=== PATIENT | male | born 1960 | race Caucasian/White ===

== ENCOUNTER 2020-07-22 17:18 | Outpatient (CLI) | payer MEDICARE, OTHER | END 2020-07-22 17:19 | disposition home or self-care (01) | LOC: CSHRAD 17:18 | PROVIDERS: ATTEND Emergency Medicine | DX: G20 Parkinson's disease (principal); T85.698A Other mechanical complication of other specified internal prosthetic devices, implants and grafts, initial encounter | CPT/HCPCS: 74018 ==

== ENCOUNTER 2024-02-23 18:01 | Emergency (ER) | payer OTHER ==
[2024-02-23] MEDS ORDERED: Cefepime 2 GM VIAL ONE (18:20)
[2024-02-23] MEDS ORDERED: Morphine 4 MG/ML VIAL ONE (18:20)
[2024-02-23 18:55] LABS: #Basophils 0.03 10x3/uL (0.0-0.2); #Eosinophils 0.19 10x3/uL (0.0-0.5); #Neutrophils 8.53 10x3/uL (1.5-8.4); %Basophils 0.3 % (0.0-2.0); %Eosinophils 1.7 % (0.0-6.0); %Lymphocytes 13.4 % (18.0-47.0); %Monocytes 9.6 % (0.0-10.0); %Neutrophils 74.6 % (40.0-75.0); Hemoglobin 13.6 g/dL (13.5-17.5); Mean Corpuscular HGB CONC 32.4 g/dL (32.0-36.0); Mean Corpuscular Hemoglobin 29.9 pg (27.0-33.0); Mean Corpuscular Volume 92.3 fL (81.2-95.1); Mean Platelet Volume 9.3 fL (7.4-10.4); Platelet Count 186 10x3/uL (150-450); RBC Distribution Width 11.8 % (11.5-14.5); Red Blood Cell (RBC) Count 4.55 10x6/uL (4.32-5.72); White Blood Cell (WBC) Count 11.4 10x3/uL (3.5-10.5)
[2024-02-23] MEDS ORDERED: Vancomycin 1.5 GRAM/300 ML BAG 1.5 GM in Premix 1 BAG IVPB SCH (19:00)
[2024-02-23 19:05] LABS: PTT 27.3 sec (22.0-33.0); Prothrombin Time 10.8 sec (9.5-12.1)
[2024-02-23 19:12] LABS: ALT (SGPT) Less than 7 U/L (8-55); AST (SGOT) 15 U/L (5-34); Albumin 4.3 g/dL (3.4-4.8); Alkaline Phosphatase 107 U/L (40-110); Anion Gap 16 mmol/L (10-20); BUN (Urea Nitrogen) 12 mg/dL (8.4-25.7); Bilirubin, Total 0.8 mg/dL (0.2-1.2); Calc. Creatinine Clearance 0 mL/min (70-130); Calcium 9.2 mg/dL (7.8-10.44); Carbon Dioxide 23 mmol/L (23-31); Chloride 105 mmol/L (98-107); Estimated GFR 96; Globulin 2.9 g/dL (2.4-3.5); Glucose 101 mg/dL (80-115); Protein, Total 7.2 g/dL (5.8-8.1); Sodium 140 mmol/L (136-145)
== END 2024-02-23 22:46 | disposition short-term general hospital (02) ==
LOC: CSHERS 18:01
DX: M86.8X7 Other osteomyelitis, ankle and foot (principal)
CPT/HCPCS: 73660; 80053; 83605; 84145; 85025; 85610; 85730; 86140; 87040; 87149 ×2; 96365; 96375; 99285; J0692; J2272; J3370; 36415

== ENCOUNTER 2025-01-15 18:22 | Inpatient (IN) | payer MEDICARE, OTHER ==
[2025-01-15 19:49] LABS: #Basophils Less than 0.03 10x3/uL (0.0-0.2); #Eosinophils Less than 0.03 10x3/uL (0.0-0.5); #Monocytes 0.75 10x3/uL (0.0-1.1); #Neutrophils 13.27 10x3/uL (1.5-8.4); %Basophils 0.1 % (0.0-2.0); %Eosinophils 0.0 % (0.0-6.0); %Lymphocytes 3.5 % (18.0-47.0); %Monocytes 5.1 % (0.0-10.0); %Neutrophils 90.9 % (40.0-75.0); Hematocrit 41.1 % (38.8-50.0); Hemoglobin 13.3 g/dL (13.5-17.5); Mean Corpuscular Hemoglobin 29.3 pg (27.0-33.0); Mean Corpuscular Volume 90.5 fL (81.2-95.1); Platelet Count 178 10x3/uL (150-450); Red Blood Cell (RBC) Count 4.54 10x6/uL (4.32-5.72); White Blood Cell (WBC) Count 14.61 10x3/uL (3.5-10.5)
[2025-01-15 20:01] LABS: ALT (SGPT) Less than 7 U/L (Less than 45); AST (SGOT) 17 U/L (11-34); Albumin 4.3 g/dL (3.1-4.5); Alkaline Phosphatase 75 U/L (40-110); Anion Gap 11 mmol/L (10-20); BUN (Urea Nitrogen) 15 mg/dL (8.4-25.7); Bilirubin, Total 1.2 mg/dL (0.3-1.2); Calc. Creatinine Clearance 0 mL/min (70-130); Calcium 9.3 mg/dL (7.8-10.44); Carbon Dioxide 27 mmol/L (23-31); Chloride 105 mmol/L (98-107); Globulin 2.7 g/dL (2.4-3.5); Glucose 120 mg/dL (80-115); Lipase 13 U/L (8-78); Magnesium 2.3 mg/dL (1.6-2.6); Potassium 4.3 mmol/L (3.5-5.1); Sodium 139 mmol/L (136-145)
[2025-01-15 20:04] LABS: Troponin I Less than 0.010 ng/mL (< 0.028)
[2025-01-15] MEDS ORDERED: cefTRIAXone (ROCEPHIN) 1 GM VIAL ONE (20:39)
[2025-01-15 20:50] LABS: Glucose, Urine (Dipstick) Normal (Negative); Leukocyte 25 (Negative); Protein, Urine (Dipstick) 30 mg/dl (Neg-Trace); Specific Gravity, Urine 1.025 (1.005-1.030)
[2025-01-15 21:02] LABS: Bacteria/HPF None Seen HPF (None Seen); CAUTI Indications for Culture Dysuria,urgency,freq; Mucous/LPF 2+ LPF (<2+); RBC/HPF 0-3 HPF (0-3); Urine Culture Reflex No No; WBC/HPF 0-3 HPF (0-3)
[2025-01-15] MEDS ORDERED: Calcium Carbonate 500 MG ChewTAB PO PRN (22:49)
[2025-01-15] MEDS ORDERED: Ondansetron PF 4 MG/2 ML Vial IVP PRN (22:49)
[2025-01-15 23:55] VITALS: BMI 21.3
[2025-01-16] MEDS: Melatonin 3 MG TAB PO SCH (01:27)
[2025-01-16] MEDS: clonazePAM 0.5 MG TAB PO SCH ×2 (01:27→21:48)
[2025-01-16 04:06] LABS: Magnesium 2.1 mg/dL (1.6-2.6)
[2025-01-16 05:12] LABS: #Basophils 0.05 10x3/uL (0.0-0.2); #Eosinophils 0.09 10x3/uL (0.0-0.5); #Monocytes 0.76 10x3/uL (0.0-1.1); #Neutrophils 5.95 10x3/uL (1.5-8.4); %Basophils 0.6 % (0.0-2.0); %Eosinophils 1.1 % (0.0-6.0); %Lymphocytes 17.3 % (18.0-47.0); %Monocytes 9.1 % (0.0-10.0); %Neutrophils 71.7 % (40.0-75.0); Hematocrit 38.2 % (38.8-50.0); Hemoglobin 12.4 g/dL (13.5-17.5); Mean Corpuscular Hemoglobin 29.3 pg (27.0-33.0); Mean Corpuscular Volume 90.3 fL (81.2-95.1); Platelet Count 177 10x3/uL (150-450); Red Blood Cell (RBC) Count 4.23 10x6/uL (4.32-5.72); White Blood Cell (WBC) Count 8.31 10x3/uL (3.5-10.5)
[2025-01-16 05:28] LABS: ALT (SGPT) 9 U/L (Less than 45); AST (SGOT) 14 U/L (11-34); Albumin 3.7 g/dL (3.1-4.5); Alkaline Phosphatase 68 U/L (40-110); Anion Gap 9 mmol/L (10-20); BUN (Urea Nitrogen) 11 mg/dL (8.4-25.7); Bilirubin, Total 0.7 mg/dL (0.3-1.2); Calc. Creatinine Clearance 90 mL/min (70-130); Calcium 8.8 mg/dL (7.8-10.44); Carbon Dioxide 29 mmol/L (23-31); Chloride 108 mmol/L (98-107); Globulin 2.4 g/dL (2.4-3.5); Glucose 112 mg/dL (80-115); Potassium 3.7 mmol/L (3.5-5.1); Sodium 142 mmol/L (136-145)
[2025-01-16] MEDS ORDERED: clonazePAM 0.5 MG TAB PO PRN (08:29)
[2025-01-16] MEDS: QUEtiapine 25 MG TAB PO SCH (09:02)
[2025-01-16] MEDS: Acetaminophen 325 MG TAB PO PRN (11:43)
[2025-01-16] MEDS ORDERED: clonazePAM 0.5 MG TAB PO SCH (21:00)
[2025-01-16] MEDS: Simvastatin 10 MG TAB PO SCH (21:47)
[2025-01-16] MEDS: cefTRIAXone\\ROCEPHIN 1 GM in Sodium Chloride 0.9% 100 ML IVPB SCH (21:48)
[2025-01-17 11:44] VITALS: BP 111/62; TEMP 98.6
== END 2025-01-17 16:06 | DRG 689 ==
LOC: CSHERS 18:22 → SUATTDRO 18:22 → CSHTELE 22:48 → OBSVTOIN 01-17 15:34
PROVIDERS: ADMIT Internal Medicine; ATTEND Internal Medicine
DX: N39.0 Urinary tract infection, site not specified (principal); G92.8 Other toxic encephalopathy; F02.83 Dementia in other diseases classified elsewhere, unspecified severity, with mood disturbance; E78.5 Hyperlipidemia, unspecified; N40.0 Benign prostatic hyperplasia without lower urinary tract symptoms; R19.7 Diarrhea, unspecified; K59.00 Constipation, unspecified; G20.A1 Parkinson's disease without dyskinesia, without mention of fluctuations; M48.00 Spinal stenosis, site unspecified; Z79.899 Other long term (current) drug therapy; Z88.0 Allergy status to penicillin
CPT/HCPCS: 36415; 74177; 80053; 81001; 83605; 83690; 83735; 84484; 85025; 87040; 87086; 94762; 96361; 96374; 96376; G0378; J0696; J7030